=== PATIENT | male | born 1980 | race Caucasian/White ===

== ENCOUNTER 2024-08-06 06:16 | Day surgery (SDC) | payer BC ==
[~2024-08-06 06:16] MED LIST: Sodium Chloride 0.9% 10 ML Syringe FLUSH PRN
[2024-08-06] MEDS ORDERED: Midazolam 1 MG/ML 2 ML SDV IV ONE (06:17)
[2024-08-06] MEDS ORDERED: Phenylephrine 0.5% Nasal Spray 15 ML Bot NAS ONE (06:17)
[2024-08-06] MEDS ORDERED: Propofol 200 MG/20 ML SDV IV ONE (06:17)
[2024-08-06] MEDS ORDERED: Lidocaine 2% 100 MG/5 ML Syringe IVPUSH ONE (06:17)
[2024-08-06] MEDS ORDERED: Ketamine 500 mg/10 ML MDV IV ONE (06:17)
[2024-08-06] MEDS ORDERED: Ketorolac 30 MG/ML SDV IVPUSH ONE (06:17)
[2024-08-06] MEDS: Lactated Ringers 1,000 ML IV SCH (07:23)
[2024-08-06] MEDS: Simethicone Drops 40 MG/0.6 ML 30 ML Bottle ONE (07:38)
== END 2024-08-06 09:37 | disposition home or self-care (01) ==
LOC: FB.SDS 06:16
PROVIDERS: ATTEND Surgery
DX: D12.6 Benign neoplasm of colon, unspecified (principal); K57.30 Diverticulosis of large intestine without perforation or abscess without bleeding; K64.1 Second degree hemorrhoids; K40.90 Unilateral inguinal hernia, without obstruction or gangrene, not specified as recurrent; Z87.891 Personal history of nicotine dependence
CPT/HCPCS: 00811; 45385; 88305; A9270; J1885; J2250; J2704; J3490; J7120